=== PATIENT | female | born 1950 | race Caucasian/White ===

== ENCOUNTER → 2017-06-08 | Outpatient (CLI) | payer MEDICARE ==
[~2017-06-08] MED LIST: ALLERGY PILL; AMOXICILLIN500 MG; CEPHALEXIN500 M1 PO; COUGH SYRUP; FISH OIL1 IU; HYDROXYZINE HCL25 MG PO; MEDROL DOSEPAK4 MG PO; MOTRIN800 MG PO; MUCINEX D 600 M1 TER; PREDNICOT20 MG PO; SYNTHROID25 MCG PO; TOPROL XL25 MG PO; VICODIN 5/500 505 MG PO; VITAMINS; ZITHROMAX250 MG PO; [UNRECOGNIZED DRUG - OTHER]; [UNRECOGNIZED DRUG - REMARK]
== END | disposition home or self-care (01) ==
LOC: CT 10:50
DX: I67.82 Cerebral ischemia (principal); E03.9 Hypothyroidism, unspecified; E78.5 Hyperlipidemia, unspecified; I10 Essential (primary) hypertension

== ENCOUNTER → 2017-12-06 | Outpatient (CLI) | payer MEDICARE | END | disposition home or self-care (01) | LOC: MAMMO 09:35 | DX: Z12.31 Encounter for screening mammogram for malignant neoplasm of breast (principal) ==

== ENCOUNTER → 2018-12-12 | Outpatient (CLI) | payer MEDICARE | END | disposition home or self-care (01) | LOC: MAMMO 07:14 | DX: Z12.31 Encounter for screening mammogram for malignant neoplasm of breast (principal) ==

== ENCOUNTER → 2019-01-21 | Outpatient (CLI) | payer MEDICARE | END | disposition home or self-care (01) | LOC: RAD 11:54 | DX: M85.872 Other specified disorders of bone density and structure, left ankle and foot (principal) ==

== ENCOUNTER 2019-08-30 10:28 | Inpatient (IN) | payer MEDICARE ==
[~2019-08-30] VITALS: Ht 152.4 cm; Wt 78.9 kg
[2019-08-30 10:34] VITALS: BP 163/76
[2019-08-30 11:39] LABS: BASO # 0.1 10*3/uL (0.0-0.1); BASO % 0.5 % (0.0-1.0); EOS # 0.1 10*3/uL (0.0-0.4); EOS % 0.5 % (1.0-4.0); HEMATOCRIT 47.5 % (37.0-47.0); HEMOGLOBIN 15.6 g/dl (12.0-16.0); LYMPH # 1.7 10*3/uL (1.3-4.4); LYMPH % 15.6 % (27.0-41.0); MEAN CORPUSCULAR HGB 31.2 pg (27.0-31.0); MEAN CORPUSCULAR HGB CONC 32.8 g/dl (33.0-37.0); MEAN PLATELET VOLUME 9.7 fl (9.6-12.3); MONO # 1.5 10*3/uL (0.1-1.0); MONO % 13.3 % (3.0-9.0); NEUT # 7.7 10*3/uL (2.3-7.9); NEUT % 69.6 % (47.0-73.0); PLATELET COUNT AUTOMATED 292 10*3/uL (130-400); RED CELL DISTRI WIDTH 13.1 % (0-14.5)
[2019-08-30 11:53] LABS: ALBUMIN 3.9 gm/dl (3.1-4.5); ALKALINE PHOSPHATASE 68 U/L (45-117); BUN 11 mg/dl (7-24); CHLORIDE 106 mmol/L (98-107); CREATININE 0.66 mg/dL (0.55-1.02); POTASSIUM 4.3 mmol/L (3.5-5.1); SGOT/AST 15 IU/L (3-35); SGPT/ALT 34 U/L (12-78); SODIUM 138 mmol/L (136-145); TOTAL PROTEIN 7.3 gm/dL (6.4-8.2)
[2019-08-30 12:00] VITALS: BP 156/60
[2019-08-30 15:15] VITALS: BP 156/60
[2019-08-30] MEDS ORDERED: LEVOTHYROXINE100 MC1 PO (15:33)
[2019-08-30] MEDS ORDERED: AUGMENTIN 500500 MG PO (15:35)
[2019-08-30] MEDS ORDERED: METHYLPRED-DP4 MG PO (15:36)
[2019-08-30] MEDS ORDERED: LOVASTATIN40 MG PO (15:37)
[2019-08-30] MEDS ORDERED: SERTRALINE HYD100 MG PO (15:38)
[2019-08-30] MEDS ORDERED: MONTELUKAST SOD10 MG PO (15:38)
[2019-08-30] MEDS ORDERED: ASPIRIN ADULT L81 M1 PO (15:39)
[2019-08-30 16:00] VITALS: BP 156/66
--- NOTE | 2019-08-30 17:00 | NUR ---
PATIENT INSTRUCTED ON FLUTTER VALVE.
--- NOTE | 2019-08-30 19:45 | NUR ---
TOOK OVER CARE OF PT.PT SITTING UP IN BED, ALERT ORIENTED AND PLEASANT MOOD. ASSESSMENT COMPLETE. NO NEW ABNORMALITIES NOTED. NO S/S OF DISTRESS. PT DENIES NEEDING ANYTHING AT THIS TIME. CALL LIGHT IN REACH.
[2019-08-30 20:00] VITALS: BP 169/67
[2019-08-30 20:30] VITALS: BP 140/88
--- NOTE | 2019-08-30 21:58 | NUR ---
PT GIVEN HS MEDICATIONS. IV SITE TO RIGHT ANTECUBITAL IS PATENT, FLUSHING WITH EASE/GOOD BLOOD RETURN. PT PRODUCTIVE COUGH NOTED. PT ENCOURAGED TO PROVIDE SPUTUM SAMPLE. PT DENIES NEEDING ANYTHING ELSE. ALL SAFETY MEASURES ARE IN PLACE. CALL LIGHT IN REACH.
[2019-08-31] VITALS: BP 159/70
--- NOTE | 2019-08-31 01:55 | NUR ---
Shift chart check completed.
--- NOTE | 2019-08-31 06:44 | NUR ---
PT RESTING IN BED, NO S/S OF DISTRESS. AM MEDS TAKEN WITH EASE. PT DENIES NEEDING ANYTHING AT THIS TIME. CALL LIGHT IN REACH.
[2019-08-31 06:49] LABS: BASO % 0.1 % (0.0-1.0); HEMOGLOBIN 14.5 g/dl (12.0-16.0); LYMPH # 1.7 10*3/uL (1.3-4.4); LYMPH % 16.9 % (27.0-41.0); MEAN CORPUSCULAR HGB 31.3 pg (27.0-31.0); MEAN PLATELET VOLUME 9.9 fl (9.6-12.3); MONO % 9.6 % (3.0-9.0); NEUT # 7.2 10*3/uL (2.3-7.9); NEUT % 72.6 % (47.0-73.0); PLATELET COUNT AUTOMATED 279 10*3/uL (130-400); RED BLOOD COUNT 4.63 10*6/uL (4.10-5.10); RED CELL DISTRI WIDTH 13.1 % (0-14.5)
[2019-08-31 07:19] LABS: ALBUMIN 3.6 gm/dl (3.1-4.5); ALKALINE PHOSPHATASE 58 U/L (45-117); BUN 11 mg/dl (7-24); CHLORIDE 108 mmol/L (98-107); CREATININE 0.68 mg/dL (0.55-1.02); PHOSPHOROUS 3.1 mg/dL (2.5-4.9); POTASSIUM 4.1 mmol/L (3.5-5.1); SGOT/AST 14 IU/L (3-35); SGPT/ALT 29 U/L (12-78); SODIUM 139 mmol/L (136-145)
--- NOTE | 2019-08-31 07:25 | NUR ---
ARRIVED ON SHIFT, INTRODUCED TO PATIENT, BED IN LOW POSITION, WHEEL LOCKS IN ENGAGED, CALL LIGHT WITHIN REACH, NO NEEDS VOICED AT THIS TIME, WHITE BOARD UPDATED.
[2019-08-31 08:00] VITALS: BP 145/56
--- NOTE | 2019-08-31 10:48 | NUR ---
PATIENT C/O OF HEADACHE PAIN 8/10 MEDICATED WITH TYLENOL ORDERED.
--- NOTE | 2019-08-31 11:48 | NUR ---
PATIENT REPORTS NO RELIEF FROM TYLENOL GIVEN X 1 HOUR AGO, DR. GRIFFITHS.
[2019-08-31 12:00] VITALS: BP 149/60
[2019-08-31 16:00] VITALS: BP 152/75
[2019-08-31 20:00] VITALS: BP 121/48
[2019-09-01] VITALS: BP 137/51
--- NOTE | 2019-09-01 07:00 | NUR ---
ARRIVED ON SHIFT, INTRODUCED TO PATIENT, BED IN LOW POSITION, WHEEL LOCKS ENGAGED, CALL LIGHT WITHIN REACH, NO NEEDS VOICED AT THIS TIME . WHITEBOARD UPDATED.
[2019-09-01 08:00] VITALS: BP 158/71
--- NOTE | 2019-09-01 08:08 | NUR ---
Shift chart check completed.
--- NOTE | 2019-09-01 09:00 | NUR ---
Employee Relations Assistant in to talk to patient. Patient states lives at home with . There are no steps in the home. Physician: everett griffith Pharmacy: [facility] health services: none Patient's level of ADLs: INDEPENDENT Patient has working utilities: all working DME: none Follow-up physician's appointment after d/c: will be made by hospitalist nurse director upon discharge Does patient want to access PORTAL?: no Discharge plan discussed with patient, she states she lives ta home with carissa, she stated she is independent in adls and ambulation, she has a nebulizer, she states she will return home when medically stable and denies any home needs. DARIO LEA
--- NOTE | 2019-09-01 10:12 | NUR ---
CALLED DR. GREEN, ADVISED OF CONSULT, HE VERSED HE WILL SEE HER TOMORROW.
[2019-09-01 12:00] VITALS: BP 147/73
[2019-09-01 16:00] VITALS: BP 156/75
[2019-09-01 20:00] VITALS: BP 131/54
[2019-09-02] VITALS: BP 130/60
--- NOTE | 2019-09-02 07:20 | NUR ---
ARRIVED ON SHIFT, INTRODUCED TO PATIENT, BED IN LOW POSITION, WHEEL LOCKS ENGAGED, CALL LIGHT WITHIN REACH, NO NEEDS VOICED AT THIS TIME.
[2019-09-02 08:00] VITALS: BP 117/81
--- NOTE | 2019-09-02 09:00 | NUR ---
case management visits with patient, she states she will return home when medically stable and denies any home needs
[2019-09-02 12:00] VITALS: BP 153/74
--- NOTE | 2019-09-02 15:47 | NUR ---
Shift chart check completed.
[2019-09-02 16:00] VITALS: BP 123/67
[2019-09-02 20:00] VITALS: BP 130/51
--- NOTE | 2019-09-02 20:00 | NUR ---
[id number] SITTING UP IN BED WITH HOB ELEVATED. 02 INTACT AT 1 LITER VIA NASAL CANNULA. PULSE OX 94%. PT. VOICES NO C/O AT THIS TIME. VISITING. CALL LIGHT WITHIN REACH.
--- NOTE | 2019-09-02 22:00 | NUR ---
TOOK PO MEDICATION WITHOUT DIFFICULTY. VOICES NO C/O AT THIS TIME. PT. INFORMED OF NPO STATUS AFTER MIDNIGHT FOR BRONCHOSCOPY TOMORROW MORNING. PT. VERBALIZED UNDERSTANDING. CALL LIGHT WITHIN REACH.
[2019-09-03] VITALS (8 sets, daily range): BP systolic 119–146; BP diastolic 52–86
[2019-09-03 06:10] LABS: HEMATOCRIT 42.6 % (37.0-47.0); HEMOGLOBIN 13.8 g/dl (12.0-16.0); MEAN CELL VOLUME 94.9 fl (81.0-99.0); MEAN CORPUSCULAR HGB 30.7 pg (27.0-31.0); MEAN CORPUSCULAR HGB CONC 32.4 g/dl (33.0-37.0); MEAN PLATELET VOLUME 9.7 fl (9.6-12.3); PLATELET COUNT AUTOMATED 323 10*3/uL (130-400); RED BLOOD COUNT 4.49 10*6/uL (4.10-5.10); RED CELL DISTRI WIDTH 13.2 % (0-14.5); WHITE BLOOD COUNT 15.3 10*3/uL (4.8-10.8)
--- NOTE | 2019-09-03 06:30 | NUR ---
RESTING IN BED WITH EYES CLOSED. 02 INTACT. RESPIRATIONS EASY & UNLABORED. CALL LIGHT WITHIN REACH.
[2019-09-03 06:39] LABS: OVALOCYTES FEW; PLATELET SUFFICIENCY NORMAL (NORMAL); TOTAL CELLS COUNTED 100 #CELLS
[2019-09-03 06:40] LABS: VACUOLATION OF NEUTROPHILS SLIGHT
[2019-09-03 06:45] LABS: ALBUMIN 3.4 gm/dl (3.1-4.5); ALKALINE PHOSPHATASE 48 U/L (45-117); BUN 18 mg/dl (7-24); CHLORIDE 108 mmol/L (98-107); CREATININE 0.71 mg/dL (0.55-1.02); POTASSIUM 4.4 mmol/L (3.5-5.1); SGOT/AST 10 IU/L (3-35); SGPT/ALT 30 U/L (12-78); SODIUM 141 mmol/L (136-145); TOTAL PROTEIN 6.3 gm/dL (6.4-8.2)
--- NOTE | 2019-09-03 09:00 | NUR ---
case management visits with patient, she states she will return home when medically stable and denies any home needs, case management will follow
--- NOTE | 2019-09-03 21:14 | NUR ---
PATIENT MEDICATED WITH TYLENOL PER REQUEST FOR COMPLAINTS OF A HEADACHE. WILL CONTINUE TO MONITOR.
--- NOTE | 2019-09-03 21:29 | NUR ---
PATIENTS IV LEAKING. IV REMOVED. NEW IV 22G IV STARTED IN LEFT HAND ON FIRST ATTEMPT. WILL CONTINUE TO MONITOR.
[2019-09-04] VITALS: BP 119/53
--- NOTE | 2019-09-04 01:45 | NUR ---
PATIENT SLEEPING, NO SIGNS OF DISTRESS. RESPIRATIONS EASY,NON LABORED. NO SIGNS OF DISTRESS. BED IN LOWEST POSITION,CALL LIGHT WITHIN REACH. WILL CONTINUE TO MONITOR.
--- NOTE | 2019-09-04 05:00 | NUR ---
PATIENT ACCIDENTLY RIPPED IV OUT. NEW IV 20G IV STARTED IN LAC.
[2019-09-04 06:17] LABS: HEMATOCRIT 41.9 % (37.0-47.0); HEMOGLOBIN 13.6 g/dl (12.0-16.0); MEAN CELL VOLUME 94.8 fl (81.0-99.0); MEAN CORPUSCULAR HGB 30.8 pg (27.0-31.0); MEAN CORPUSCULAR HGB CONC 32.5 g/dl (33.0-37.0); MEAN PLATELET VOLUME 9.7 fl (9.6-12.3); PLATELET COUNT AUTOMATED 327 10*3/uL (130-400); RED BLOOD COUNT 4.42 10*6/uL (4.10-5.10); RED CELL DISTRI WIDTH 13.2 % (0-14.5); WHITE BLOOD COUNT 18.4 10*3/uL (4.8-10.8)
[2019-09-04 06:27] LABS: BUN 16 mg/dl (7-24); CHLORIDE 107 mmol/L (98-107); CREATININE 0.67 mg/dL (0.55-1.02); POTASSIUM 4.3 mmol/L (3.5-5.1); SODIUM 139 mmol/L (136-145)
[2019-09-04 07:15] LABS: PLATELET SUFFICIENCY NORMAL (NORMAL); TOTAL CELLS COUNTED 100 #CELLS
[2019-09-04 08:00] VITALS: BP 134/44
--- NOTE | 2019-09-04 09:00 | NUR ---
case management visits with patient,she states she will return home when medically stable and denies any home needs
--- NOTE | 2019-09-04 09:07 | NUR ---
PT MEDICATED WITH PRN TYLENOL FOR C/O A HEADACHE.
[2019-09-04 12:00] VITALS: BP 130/48
[2019-09-04 16:00] VITALS: BP 136/52
[2019-09-04 16:08] LABS: ACID FAST SPEC PROCESSING Concentration (.)
--- NOTE | 2019-09-04 17:38 | NUR ---
12:00 O2 DECREASED TO 1 L NC SPO2 94% ON 2 L NC
[2019-09-04 20:00] VITALS: BP 135/75
[2019-09-05] VITALS: BP 135/59
--- NOTE | 2019-09-05 04:00 | NUR ---
PATIENT SLEEPING, RESPIRATIONS EASY, NON LABORED. NO SIGNS OF DISTRESS. BED IN LOWEST POSITION,CALL LIGHT WITHIN REACH. WILL CONTINUE TO MONITOR.
[2019-09-05 08:00] VITALS: BP 154/60
--- NOTE | 2019-09-05 12:44 | NUR ---
12:30 PT ASSESSED FOR HOME O2. SPO2 RA REST: 90-91% SPO2 RA AMBULATIN-92% PT DOSE NOT QUALIFY FOR HOME O2. RN AND AWARE.
[2019-09-05] MEDS ORDERED: LISINOPRIL10 M1 PO (12:50)
[2019-09-05] MEDS ORDERED: AVPAK AZITHROM250 MG PO (12:50)
[2019-09-05] MEDS ORDERED: PREDNISONE10 MG PO (12:50)
--- NOTE | 2019-09-05 13:11 | NUR ---
Discharge instructions reviewed with patient. Patient receptive and verbalizes understanding. Follow-up care arranged. Written instructions given to patient. 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 TAYLOR GARRISON
--- NOTE | 2019-09-05 13:35 | NUR ---
Pt out via wheelchair to first floor lobby by Felicity Agrawal for dc.
--- NOTE | 2019-09-05 16:04 | NUR ---
Spoke with Vera from [facility]. She was asking about order for zithromycin for pt. Notified that pt had 2 iv doses here at the hospital.
== END 2019-09-05 13:35 | disposition home or self-care (01) | DRG 190 ==
LOC: ED 10:28 → EDHOLD 13:54 → 5E 13:54
PROVIDERS: Family Medicine; Internal Medicine; Internal Medicine Critical Care Medicine; Physician Assistant; ADMIT Internal Medicine
PROC: 0BC48ZZ Extirpation of Matter from Right Upper Lobe Bronchus, Via Natural or Artificial Opening Endoscopic (ICD-10-PCS; principal; 2019-09-03)
PROC: 0BC98ZZ Extirpation of Matter from Lingula Bronchus, Via Natural or Artificial Opening Endoscopic (ICD-10-PCS; principal; 2019-09-03)
PROC: 0BC58ZZ Extirpation of Matter from Right Middle Lobe Bronchus, Via Natural or Artificial Opening Endoscopic (ICD-10-PCS; principal; 2019-09-03)
PROC: 0BC18ZZ Extirpation of Matter from Trachea, Via Natural or Artificial Opening Endoscopic (ICD-10-PCS; principal; 2019-09-03)
PROC: 0BC28ZZ Extirpation of Matter from Carina, Via Natural or Artificial Opening Endoscopic (ICD-10-PCS; principal; 2019-09-03)
PROC: 0BCB8ZZ Extirpation of Matter from Left Lower Lobe Bronchus, Via Natural or Artificial Opening Endoscopic (ICD-10-PCS; principal; 2019-09-03)
PROC: 0BC88ZZ Extirpation of Matter from Left Upper Lobe Bronchus, Via Natural or Artificial Opening Endoscopic (ICD-10-PCS; principal; 2019-09-03)
PROC: 0BC78ZZ Extirpation of Matter from Left Main Bronchus, Via Natural or Artificial Opening Endoscopic (ICD-10-PCS; principal; 2019-09-03)
PROC: 0BC38ZZ Extirpation of Matter from Right Main Bronchus, Via Natural or Artificial Opening Endoscopic (ICD-10-PCS; principal; 2019-09-03)
PROC: 0BC68ZZ Extirpation of Matter from Right Lower Lobe Bronchus, Via Natural or Artificial Opening Endoscopic (ICD-10-PCS; principal; 2019-09-03)
DX: J44.0 Chronic obstructive pulmonary disease with (acute) lower respiratory infection (principal); J18.9 Pneumonia, unspecified organism; E44.1 Mild protein-calorie malnutrition; J44.1 Chronic obstructive pulmonary disease with (acute) exacerbation; J20.9 Acute bronchitis, unspecified; H66.92 Otitis media, unspecified, left ear; I10 Essential (primary) hypertension; J98.09 Other diseases of bronchus, not elsewhere classified; E03.9 Hypothyroidism, unspecified; E78.5 Hyperlipidemia, unspecified; F17.219 Nicotine dependence, cigarettes, with unspecified nicotine-induced disorders; E87.8 Other disorders of electrolyte and fluid balance, not elsewhere classified; E83.41 Hypermagnesemia; E66.9 Obesity, unspecified; F41.1 Generalized anxiety disorder; E11.65 Type 2 diabetes mellitus with hyperglycemia; Z71.6 Tobacco abuse counseling; Z68.34 Body mass index [BMI] 34.0-34.9, adult; Z91.048 Other nonmedicinal substance allergy status; Z79.899 Other long term (current) drug therapy; Z90.710 Acquired absence of both cervix and uterus; Z82.49 Family history of ischemic heart disease and other diseases of the circulatory system; Z79.82 Long term (current) use of aspirin

== ENCOUNTER 2020-02-11 09:04 | Inpatient (IN) | payer MEDICARE ==
[2020-02-11] VITALS (11 sets, daily range): BP systolic 118–159; BP diastolic 58–84
[~2020-02-11] VITALS: Ht 152.4 cm; Wt 86.6 kg
[~2020-02-11 09:04] MED LIST changes: +ASPIRIN ADULT L81 M1 PO; +AUGMENTIN 500500 MG PO; +AVPAK AZITHROM250 MG PO; +LEVOTHYROXINE100 MC1 PO; +LISINOPRIL10 M1 PO; +LOVASTATIN40 MG PO; +METHYLPRED-DP4 MG PO; +MONTELUKAST SOD10 MG PO; +PREDNISONE10 MG PO; +SERTRALINE HYD100 MG PO
[2020-02-11] MEDS ORDERED: Rimactane,Rifa300 MG PO (09:32)
[2020-02-11] MEDS ORDERED: AZITHROMYCIN500 M2 PO (09:33)
[2020-02-11 09:35] LABS: HEMATOCRIT 44.6 % (37.0-47.0); MEAN CELL VOLUME 92.9 fl (81.0-99.0); MEAN CORPUSCULAR HGB 30.6 pg (27.0-31.0); MEAN PLATELET VOLUME 9.5 fl (9.6-12.3); PLATELET COUNT AUTOMATED 271 10*3/uL (130-400); RED CELL DISTRI WIDTH 13.2 % (0-14.5); WHITE BLOOD COUNT 5.5 10*3/uL (4.8-10.8)
[2020-02-11 09:46] LABS: ACT PARTIAL THROMBO TIME 32.9 SECONDS (20.0-32.1)
[2020-02-11 09:53] LABS: ALBUMIN 3.9 gm/dl (3.1-4.5); ALKALINE PHOSPHATASE 54 U/L (45-117); BUN 10 mg/dl (7-24); CHLORIDE 108 mmol/L (98-107); CREATININE 0.66 mg/dL (0.55-1.02); SGOT/AST 22 IU/L (3-35); SGPT/ALT 36 U/L (12-78); SODIUM 139 mmol/L (136-145); TOTAL PROTEIN 7.4 gm/dL (6.4-8.2)
[2020-02-11 09:54] LABS: TROPONIN I < 0.015 ng/ml (<0.045)
[2020-02-11 09:56] LABS: OVALOCYTES FEW; PLATELET SUFFICIENCY NORMAL (NORMAL); TOTAL CELLS COUNTED 100 #CELLS
--- NOTE | 2020-02-11 11:29 | NUR ---
PATIENT FELL ASLEEP PULSE OX DROPPED TO 90% ON ROOM AIR. PATIENT STARTED ON 2L VIA NASAL CANNULA
--- NOTE | 2020-02-11 12:11 | NUR ---
2ND EKG COMPLETED
--- NOTE | 2020-02-11 13:00 | NUR ---
CALLED RECEIVING NURSE, SHE IS AT [place] SHE IS CALLING THE FLOOR TO SEE IF SOMEONE WILL TAKE PATIENT
--- NOTE | 2020-02-11 13:42 | NUR ---
MSTime: 1330 A 69 year old FEMALE admitted to 5E under services of YAO DOMINGUEZ DO. Pt. arrived via ambulatory from ER. Chief complaint: INCREASED SHORTNESS OF BREATH RONALDO VAZQUEZ.
--- NOTE | 2020-02-11 13:56 | NUR ---
PT MEDICATED WITH PO TYLENOL PER PRN ORDER FOR C/O HEADACHE. WILL MONITOR EFFECTIVENESS.
[2020-02-11] MEDS ORDERED: PROAIR HFA8.5 GM INH (14:11)
[2020-02-11] MEDS ORDERED: LISINOPRIL40 MG PO (14:11)
--- NOTE | 2020-02-11 14:14 | NUR ---
'S OFFICE CALLED REGARDING HOME MEDS. MED REC UPDATED PER POLICY.
--- NOTE | 2020-02-11 14:28 | NUR ---
NOTIFIED OF CONSULT.
--- NOTE | 2020-02-11 14:56 | NUR ---
TYLENOL RELIEVING HEADACHE PER PT. WILL CONTINUE TO MONITOR.
--- NOTE | 2020-02-11 18:41 | NUR ---
PT MEDICATED WITH PO TYLENOL PER PRN ORDER FOR C/O HEADACHE. WILL MONITOR EFFECTIVENESS.
--- NOTE | 2020-02-11 19:30 | NUR ---
PATIENT AT THIS TIME ACCIDENTALLY PULLED IV OUT. NEW IV STARTED IN THE RIGHT AC AFTER ONE ATTEMPT. PATIENTS BREATHING IS EASY AND REGULAR AND STATES ONLY SHORTNESS OF BREATH WITH EXERTION. 2L AT BEDSIDE FOR COMFORT. PATIENT STATES THAT SHE IS GETTING ON AND OFF HEADACHES. NO EDEMA NOTED. DENIES CHEST PAIN. DENIES N/V/D/C. CALL LIGHT WITHIN REACH, WILL MONITOR
--- NOTE | 2020-02-11 22:58 | NUR ---
PATIENT SITTING IN BED ON PHONE. NO COMPLAINTS AT THIS TIME BEDSIDES FEELING STUFFY. HUMIDIFIED OXYGEN ADDED. CALL LIGHT WITHIN REACH, WILL MONITOR
[2020-02-12] VITALS: BP 107/61
--- NOTE | 2020-02-12 01:00 | NUR ---
PATIENT SLEEPING, NO DISTRESS NOTED. BREATHING IS EASY AND REGULAR ON 2L NC. CALL LIGHT WITHIN REACH, WILL MONITOR
[2020-02-12 06:23] LABS: BASO % 0.2 % (0.0-1.0); HEMATOCRIT 42.4 % (37.0-47.0); LYMPH # 1.5 10*3/uL (1.3-4.4); LYMPH % 30.3 % (27.0-41.0); MEAN CELL VOLUME 93.6 fl (81.0-99.0); MEAN CORPUSCULAR HGB 30.7 pg (27.0-31.0); MEAN CORPUSCULAR HGB CONC 32.8 g/dl (33.0-37.0); MEAN PLATELET VOLUME 9.9 fl (9.6-12.3); MONO # 0.9 10*3/uL (0.1-1.0); MONO % 18.5 % (3.0-9.0); NEUT # 2.4 10*3/uL (2.3-7.9); NEUT % 50.4 % (47.0-73.0); PLATELET COUNT AUTOMATED 272 10*3/uL (130-400); RED BLOOD COUNT 4.53 10*6/uL (4.10-5.10); RED CELL DISTRI WIDTH 13.1 % (0-14.5); WHITE BLOOD COUNT 4.8 10*3/uL (4.8-10.8)
[2020-02-12 06:41] LABS: BUN 12 mg/dl (7-24); CHLORIDE 107 mmol/L (98-107); CHOLESTEROL 175 mg/dL (<200); CREATININE 0.65 mg/dL (0.55-1.02); HDL CHOLESTEROL 37 mg/dl (40-60); LDL CHOLESTEROL 125 mg/dL (9-159); POTASSIUM 3.9 mmol/L (3.5-5.1); SODIUM 137 mmol/L (136-145); TRIGLYCERIDES 65 mg/dl (<150); VLDL CHOLESTEROL 13 mg/dL (6-40)
[2020-02-12 08:00] VITALS: BP 152/91
--- NOTE | 2020-02-12 08:00 | NUR ---
IN TO SEE PATIENT.
[2020-02-12] MEDS ORDERED: ZYRTEC10 M2 PO (08:15)
--- NOTE | 2020-02-12 09:00 | NUR ---
Pathology Manager in to talk to patient. Patient states lives at home with . There are no steps in the home. Physician: everett griffith Pharmacy: [facility] health services: none Patient's level of ADLs: INDEPENDENT Patient has working utilities: all working DME: none Follow-up physician's appointment after d/c: will be made by hospitalist nurse director upon discharge Does patient want to access PORTAL?: no Discharge plan discussed with patient, she states she lives at home with her , she is independent in adls and ambulation, drives, she states she will return home when discharged and denies any home needs, case management will follow. DARIO LEA
--- NOTE | 2020-02-12 09:30 | NUR ---
IN TO SEE PATIENT.
[2020-02-12 12:00] VITALS: BP 130/48
--- NOTE | 2020-02-12 13:19 | NUR ---
PATIENT SITTING UP IN BED. SPUTUM CONTAINER AT BEDSIDE. PT DENIES ANY HEADACHE AT THIS TIME. WILL CONTINUE TO MONITOR. NO VOICED COMPLAINTS. CALL LIGHT WITHIN REACH. VSS.
[2020-02-12 16:00] VITALS: BP 133/47
[2020-02-12 20:00] VITALS: BP 117/58
--- NOTE | 2020-02-12 21:19 | NUR ---
NOTIFIED DR. JENSEN AT THIS TIME OF PATIENT COMPLAINING OF A RECURRENT HEADACHE. PATIENT STATED THAT TYLENOL IS INEFFECTIVE AND THAT SHE WANTS TO THE HEADACHE TO GO AWAY AND TO JUST GO TO SLEEP. DR. JENSEN STATED IT WAS OK FOR THE PATIENT TO HAVE IBUPROFEN AND A RESTORIL
--- NOTE | 2020-02-12 22:04 | NUR ---
PRN DULCOLAX GIVEN FOR PT COMPLAINTS OF ABDOMINAL DISCOMFORT SHE SAYS SHE HAS NOT MOVED HER BOWELS SINCE SUNDAY. CALL LIGHT WITHIN REACH, WILL MONITOR
--- NOTE | 2020-02-12 22:04 | NUR ---
ADMINISTERED PATIENTS MEDICATION AT THIS TIME. PATIENT DENIES ANY OTHER NEEDS AND STATED THAT AFTER HER BREATHING TREATMENT SHE WILL LET THIS NURSE KNOW IF SHE NEEDS THE SLEEPING PILL. CALL LIGHT WITHIN REACH, WILL MONITOR
[2020-02-13] VITALS: BP 136/57
--- NOTE | 2020-02-13 00:37 | NUR ---
PATIENT SLEEPING, NO DISTRESS NOTED. BREATHING IS EASY AND REGULAR CALL LIGHT WITHIN REACH, WILL MONITOR
--- NOTE | 2020-02-13 02:48 | NUR ---
PATIENT SLEEPING, NO DISTRESS NOTED. WILL MONITOR
--- NOTE | 2020-02-13 03:39 | NUR ---
24 HR chart check completed.
[2020-02-13 08:00] VITALS: BP 132/57
--- NOTE | 2020-02-13 08:34 | NUR ---
PT MEDICATED WITH PRN TYLENOL FOR C/O A HEADACHE.
--- NOTE | 2020-02-13 09:00 | NUR ---
case management visits with patient, she states she will return home when discharged, denies any home needs, case management will follow
[2020-02-13 12:00] VITALS: BP 116/60
--- NOTE | 2020-02-13 12:44 | NUR ---
PT TESTED FOR HOME OXYGEN USE. AT REST HEART RATE WAS 85 BEATS PER MIN, SPO2 WAS 94% AND BLOOD PRESSURE WAS 116/60. DURING AMBULATION ON ROOM AIR HEART RATE WAS 92 BEATS PER MINUTE AND SPO2 WAS 90%. PT DOES NOT QUALIFY FOR HOME OXYGEN.
[2020-02-13] MEDS ORDERED: DOXYCYCLINE100 M3 PO (13:37)
[2020-02-13] MEDS ORDERED: PREDNISONE10 MG PO (13:37)
--- NOTE | 2020-02-13 13:58 | NUR ---
DISCHARGE INSTRUCTIONS REVIEWED. HEPLOCK REMOVED. PRESCRIPTIONS AND FOLLOW UP CARE DISCUSSED. PTS DAUGHTER TO CONSUMER SERVICES CONSULTANT AROUND 3 PM.
--- NOTE | 2020-02-13 15:03 | NUR ---
PT DISCHARGED HOME AT THIS TIME. DAUGHTER TO TRANSPORT.
== END 2020-02-13 15:03 | disposition home or self-care (01) | DRG 193 ==
LOC: ED 09:04 → 5E 12:33 → EDHOLD 12:33 → 5E 12:39
PROVIDERS: Emergency Medicine; Internal Medicine; ADMIT Internal Medicine
DX: J18.9 Pneumonia, unspecified organism (principal); J96.00 Acute respiratory failure, unspecified whether with hypoxia or hypercapnia; J44.1 Chronic obstructive pulmonary disease with (acute) exacerbation; J44.0 Chronic obstructive pulmonary disease with (acute) lower respiratory infection; J45.901 Unspecified asthma with (acute) exacerbation; E87.8 Other disorders of electrolyte and fluid balance, not elsewhere classified; R73.9 Hyperglycemia, unspecified; E83.41 Hypermagnesemia; I10 Essential (primary) hypertension; F17.210 Nicotine dependence, cigarettes, uncomplicated; E03.9 Hypothyroidism, unspecified; E78.5 Hyperlipidemia, unspecified; E66.9 Obesity, unspecified; F41.1 Generalized anxiety disorder; Z71.6 Tobacco abuse counseling; Z90.710 Acquired absence of both cervix and uterus; Z82.49 Family history of ischemic heart disease and other diseases of the circulatory system; Z79.82 Long term (current) use of aspirin; Z79.899 Other long term (current) drug therapy; Z79.890 Hormone replacement therapy; Z88.8 Allergy status to other drugs, medicaments and biological substances; Z68.34 Body mass index [BMI] 34.0-34.9, adult

== ENCOUNTER 2020-05-02 11:53 | Emergency (ER) | payer MEDICARE ==
[~2020-05-02] VITALS: Ht 152.4 cm; Wt 84.4 kg
[~2020-05-02 11:53] MED LIST changes: +AZITHROMYCIN500 M2 PO; +DOXYCYCLINE100 M3 PO; +LISINOPRIL40 MG PO; +PROAIR HFA8.5 GM INH; +Rimactane,Rifa300 MG PO; +ZYRTEC10 M2 PO
[2020-05-02 12:00] VITALS: BP 148/60
[2020-05-02 12:51] LABS: BASO # 0.1 10*3/uL (0.0-0.1); BASO % 0.8 % (0.0-1.0); EOS # 0.3 10*3/uL (0.0-0.4); EOS % 3.2 % (1.0-4.0); HEMATOCRIT 47.6 % (37.0-47.0); LYMPH # 2.6 10*3/uL (1.3-4.4); LYMPH % 31.3 % (27.0-41.0); MEAN CELL VOLUME 97.5 fl (81.0-99.0); MEAN CORPUSCULAR HGB 30.5 pg (27.0-31.0); MEAN CORPUSCULAR HGB CONC 31.3 g/dl (33.0-37.0); MEAN PLATELET VOLUME 9.9 fl (9.6-12.3); MONO # 1.3 10*3/uL (0.1-1.0); NEUT % 48.5 % (47.0-73.0); PLATELET COUNT AUTOMATED 310 10*3/uL (130-400); RED BLOOD COUNT 4.88 10*6/uL (4.10-5.10); RED CELL DISTRI WIDTH 13.5 % (0-14.5); WHITE BLOOD COUNT 8.4 10*3/uL (4.8-10.8)
[2020-05-02 13:05] LABS: ACT PARTIAL THROMBO TIME 31.3 SECONDS (20.0-32.1)
[2020-05-02 13:13] LABS: ALBUMIN 3.8 gm/dl (3.1-4.5); ALKALINE PHOSPHATASE 62 U/L (45-117); BUN 6 mg/dl (7-24); CHLORIDE 109 mmol/L (98-107); CREATININE 0.76 mg/dL (0.55-1.02); LIPASE 129 U/L (73-393); POTASSIUM 4.2 mmol/L (3.5-5.1); SGOT/AST 16 IU/L (3-35); SGPT/ALT 21 U/L (12-78); SODIUM 140 mmol/L (136-145); TOTAL PROTEIN 7.5 gm/dL (6.4-8.2)
[2020-05-02 13:17] LABS: TROPONIN I < 0.015 ng/ml (<0.045)
[2020-05-02] MEDS ORDERED: MUCINEX1200 M1 PO (16:15)
[2020-05-02] MEDS ORDERED: PROVENTIL HFA6.7 GM INH (16:15)
[2020-05-02] MEDS ORDERED: PREDNISONE50 MG PO (16:15)
== END 2020-05-02 16:23 | disposition home or self-care (01) ==
LOC: ED 11:53
PROVIDERS: Nurse Practitioner Family
DX: J44.1 Chronic obstructive pulmonary disease with (acute) exacerbation (principal); Z20.828 Contact with and (suspected) exposure to other viral communicable diseases; F17.210 Nicotine dependence, cigarettes, uncomplicated; Z79.899 Other long term (current) drug therapy; Z79.82 Long term (current) use of aspirin

== ENCOUNTER → 2020-09-09 | Outpatient (CLI) | payer MEDICARE ==
[~2020-09-09] MED LIST changes: +MUCINEX1200 M1 PO; +PREDNISONE50 MG PO; +PROVENTIL HFA6.7 GM INH
== END | disposition home or self-care (01) ==
LOC: MAMMO 09:09
PROVIDERS: ATTEND Internal Medicine
DX: Z12.31 Encounter for screening mammogram for malignant neoplasm of breast (principal); N64.89 Other specified disorders of breast

== ENCOUNTER → 2020-09-30 | Outpatient (CLI) | payer MEDICARE | END | disposition home or self-care (01) | LOC: RAD 13:02 | PROVIDERS: ATTEND Internal Medicine Pulmonary Disease | DX: A31.9 Mycobacterial infection, unspecified (principal) ==

== ENCOUNTER 2021-03-21 18:30 | Inpatient (IN) | payer MEDICARE ==
[~2021-03-21] VITALS: Ht 149.8 cm; Wt 74.4 kg
[2021-03-21 19:24] VITALS: BP 111/64
[2021-03-22 05:49] LABS: HEMATOCRIT 37.4 % (37.0-47.0); MEAN CELL VOLUME 92.3 fl (81.0-99.0); MEAN CORPUSCULAR HGB 31.6 pg (27.0-31.0); MEAN CORPUSCULAR HGB CONC 34.2 g/dl (33.0-37.0); MEAN PLATELET VOLUME 9.4 fl (9.6-12.3); PLATELET COUNT AUTOMATED 440 10*3/uL (130-400); RED BLOOD COUNT 4.05 10*6/uL (4.10-5.10); RED CELL DISTRI WIDTH 14.2 % (0-14.5); WHITE BLOOD COUNT 16.4 10*3/uL (4.8-10.8)
[2021-03-22 05:58] LABS: ALBUMIN 3.6 gm/dl (3.1-4.5); ALKALINE PHOSPHATASE 60 U/L (45-117); BUN 20 mg/dl (7-24); CHLORIDE 97 mmol/L (98-107); CREATININE 0.77 mg/dL (0.55-1.02); SGOT/AST 35 IU/L (3-35); SGPT/ALT 30 U/L (12-78); SODIUM 131 mmol/L (136-145); TOTAL PROTEIN 7.2 gm/dL (6.4-8.2)
[2021-03-22 06:21] LABS: PLATELET SUFFICIENCY HIGH (NORMAL); TOTAL CELLS COUNTED 100 #CELLS
[2021-03-22 07:56] VITALS: BP 111/69
== END 2021-03-22 21:10 | disposition left against medical advice (07) | DRG 556 ==
LOC: ED 18:30 → EDHOLD 03-22 05:44
PROVIDERS: Emergency Medicine; ADMIT Internal Medicine; ATTEND Internal Medicine
DX: M25.562 Pain in left knee (principal); E87.1 Hypo-osmolality and hyponatremia; R26.89 Other abnormalities of gait and mobility; R26.2 Difficulty in walking, not elsewhere classified; F41.9 Anxiety disorder, unspecified; I10 Essential (primary) hypertension; E03.9 Hypothyroidism, unspecified; E78.5 Hyperlipidemia, unspecified; Z53.29 Procedure and treatment not carried out because of patient's decision for other reasons; J44.9 Chronic obstructive pulmonary disease, unspecified; D47.3 Essential (hemorrhagic) thrombocythemia; R73.9 Hyperglycemia, unspecified; Z88.8 Allergy status to other drugs, medicaments and biological substances; Z90.710 Acquired absence of both cervix and uterus; Z98.891 History of uterine scar from previous surgery; Z82.49 Family history of ischemic heart disease and other diseases of the circulatory system; Z79.51 Long term (current) use of inhaled steroids; Z79.82 Long term (current) use of aspirin; Z79.899 Other long term (current) drug therapy

== ENCOUNTER → 2021-07-26 | Outpatient (CLI) | payer MEDICARE | END | disposition home or self-care (01) | LOC: US 13:00 | PROVIDERS: ATTEND Internal Medicine | DX: E07.89 Other specified disorders of thyroid (principal); E03.9 Hypothyroidism, unspecified ==

== ENCOUNTER → 2021-11-16 | Outpatient (CLI) | payer MEDICARE | END | disposition home or self-care (01) | LOC: MAMMO 11-09 14:00 | PROVIDERS: ATTEND Internal Medicine | DX: Z12.31 Encounter for screening mammogram for malignant neoplasm of breast (principal) ==

== ENCOUNTER → 2022-02-22 | Outpatient (CLI) | payer MEDICARE | END | disposition home or self-care (01) | LOC: RAD 02-17 13:30 | PROVIDERS: ATTEND Internal Medicine | DX: M85.851 Other specified disorders of bone density and structure, right thigh (principal) ==

== ENCOUNTER → 2022-03-23 | Outpatient (CLI) | payer MEDICARE | END | disposition home or self-care (01) | LOC: RAD 12:50 | PROVIDERS: ATTEND Internal Medicine | DX: M47.817 Spondylosis without myelopathy or radiculopathy, lumbosacral region (principal); M85.88 Other specified disorders of bone density and structure, other site; M25.551 Pain in right hip; M25.552 Pain in left hip ==

== ENCOUNTER → 2022-06-06 | Outpatient (CLI) | payer MEDICARE | END | disposition home or self-care (01) | LOC: US 12:12 | PROVIDERS: ATTEND Nurse Practitioner Family | DX: M79.662 Pain in left lower leg (principal) ==

== ENCOUNTER → 2022-08-31 | Outpatient (CLI) | payer MEDICARE | END | disposition home or self-care (01) | LOC: CT 00:36 | PROVIDERS: ATTEND Specialist | DX: J34.1 Cyst and mucocele of nose and nasal sinus (principal); J32.9 Chronic sinusitis, unspecified ==

== ENCOUNTER → 2022-09-19 | Outpatient (CLI) | payer MEDICARE | END | disposition home or self-care (01) | LOC: RAD 15:30 | PROVIDERS: ATTEND Nurse Practitioner Family | DX: R10.30 Lower abdominal pain, unspecified (principal) ==

== ENCOUNTER → 2022-12-07 | Day surgery (SDC) | payer MEDICARE ==
[~2022-12-07] VITALS: Ht 151.7 cm; Wt 65.8 kg
[~2022-12-07] MED LIST changes: +CARAFATE1 G1 PO; +METAMUCIL PACK3.4 GM PO
[2022-12-07 06:30] VITALS: BP 158/62
[2022-12-07 08:02] VITALS: BP 112/56
[2022-12-07 08:17] VITALS: BP 119/55
[2022-12-07 08:22] VITALS: BP 124/60
== END | disposition home or self-care (01) ==
LOC: SDC 12-04 11:00
PROVIDERS: ATTEND Surgery
DX: D62 Acute posthemorrhagic anemia (principal); K57.30 Diverticulosis of large intestine without perforation or abscess without bleeding; K29.50 Unspecified chronic gastritis without bleeding; K25.3 Acute gastric ulcer without hemorrhage or perforation; J44.9 Chronic obstructive pulmonary disease, unspecified; E03.9 Hypothyroidism, unspecified; I10 Essential (primary) hypertension; E78.00 Pure hypercholesterolemia, unspecified; Z79.899 Other long term (current) drug therapy

== ENCOUNTER → 2023-02-07 | Outpatient (CLI) | payer MEDICARE | END | disposition home or self-care (01) | LOC: LAB 12:47 | PROVIDERS: ATTEND Internal Medicine Critical Care Medicine | DX: R53.83 Other fatigue (principal); J45.40 Moderate persistent asthma, uncomplicated; E11.9 Type 2 diabetes mellitus without complications; A31.0 Pulmonary mycobacterial infection; Z68.36 Body mass index [BMI] 36.0-36.9, adult; Z87.891 Personal history of nicotine dependence ==

== ENCOUNTER → 2023-12-26 | Day surgery (SDC) | payer MEDICARE ==
[~2023-12-26] VITALS: Ht 149.8 cm; Wt 70.8 kg
[~2023-12-26] MED LIST changes: +Balanced Salt Solution 500 ML OPH SCH; +Cefuroxime Sodium 5 MG in BALANCED SALT IRRIG SOLN NO.2 0.5 ML,SYRINGE, DISPOSABLE, 10 ... IO SCH; +Midazolam Hydrochloride 5 MG/5 ML VIAL IV ONE; +OFLOXACIN 0.3% 5 ML BOTTLE ONE; +OFLOXACIN 0.3% 5 ML BOTTLE OPH SCH; +PHENYLEPHRINE/KETOROLAC 4 ML in Balanced Salt Solution 500 ML OPH SCH; +POVIDONE IODINE 5% OPHTHALMIC 30 ML BOTTLE OPH ONE; +POVIDONE IODINE 5% OPHTHALMIC 30 ML BOTTLE OPH SCH; +Phenylephrine Hydrochloride 2 ML BOT OPH ONE; +Phenylephrine Hydrochloride 2 ML BOT OPH SCH; +Proparacaine Hydrochloride 15 ML BOT OPH ONE; +Proparacaine Hydrochloride 15 ML BOT OPH SCH; +SODIUM CHLORIDE 0.9% 1,000 ML IV SCH; +TETRACAINE HCL 10 DROP BOT OPH SCH; +TROPICAMIDE 3 ML BOT OPH ONE; +TROPICAMIDE 3 ML BOT OPH SCH; +Tetracaine Hydrochloride 0.5% 4 ML BOT OPH ONE; +Tetracaine Hydrochloride 0.5% 4 ML BOT OPH SCH; +prednisoLONE acetate 1% OPHTHALMIC 5 ML BOT OPH ONE; +prednisoLONE acetate 1% OPHTHALMIC 5 ML BOT OPH SCH
[2023-12-26 10:06] VITALS: BP 146/60
[2023-12-26 10:33] VITALS: BP 138/47
[2023-12-26 10:48] VITALS: BP 129/49
[2023-12-26 11:01] VITALS: BP 132/56
== END | disposition home or self-care (01) ==
LOC: SDC 12-21 12:30
PROVIDERS: ATTEND Ophthalmology
DX: H25.11 Age-related nuclear cataract, right eye (principal); I10 Essential (primary) hypertension; E03.9 Hypothyroidism, unspecified; J44.9 Chronic obstructive pulmonary disease, unspecified; E78.00 Pure hypercholesterolemia, unspecified; F41.9 Anxiety disorder, unspecified; E66.9 Obesity, unspecified; Z68.35 Body mass index [BMI] 35.0-35.9, adult; Z90.89 Acquired absence of other organs; Z98.891 History of uterine scar from previous surgery; Z90.710 Acquired absence of both cervix and uterus; Z87.891 Personal history of nicotine dependence; Z98.890 Other specified postprocedural states; Z79.890 Hormone replacement therapy; Z79.82 Long term (current) use of aspirin; Z79.899 Other long term (current) drug therapy; Z82.49 Family history of ischemic heart disease and other diseases of the circulatory system

== ENCOUNTER → 2024-02-20 | Day surgery (SDC) | payer MEDICARE ==
[~2024-02-20] VITALS: Ht 149.8 cm; Wt 70.8 kg
[~2024-02-20] MED LIST changes: +Midazolam Hydrochloride 2 MG/2 ML VIAL IV ONE; -Midazolam Hydrochloride 5 MG/5 ML VIAL IV ONE
[2024-02-20 09:48] VITALS: BP 143/60
[2024-02-20 10:46] VITALS: BP 145/56
[2024-02-20 11:01] VITALS: BP 124/48
[2024-02-20 11:15] VITALS: BP 131/55
== END | disposition home or self-care (01) ==
LOC: SDC 02-15 11:00
PROVIDERS: ATTEND Ophthalmology
DX: H25.12 Age-related nuclear cataract, left eye (principal); I10 Essential (primary) hypertension; J44.9 Chronic obstructive pulmonary disease, unspecified; E78.00 Pure hypercholesterolemia, unspecified; E03.9 Hypothyroidism, unspecified; E66.9 Obesity, unspecified; Z68.35 Body mass index [BMI] 35.0-35.9, adult; Z90.89 Acquired absence of other organs; Z90.710 Acquired absence of both cervix and uterus; Z87.891 Personal history of nicotine dependence; Z98.891 History of uterine scar from previous surgery; Z98.890 Other specified postprocedural states; Z79.890 Hormone replacement therapy; Z79.82 Long term (current) use of aspirin; Z79.899 Other long term (current) drug therapy; Z88.8 Allergy status to other drugs, medicaments and biological substances; Z82.49 Family history of ischemic heart disease and other diseases of the circulatory system

== ENCOUNTER → 2024-02-28 | Outpatient (CLI) | payer MEDICARE ==
[~2024-02-28] MED LIST changes: -Balanced Salt Solution 500 ML OPH SCH; -Cefuroxime Sodium 5 MG in BALANCED SALT IRRIG SOLN NO.2 0.5 ML,SYRINGE, DISPOSABLE, 10 ... IO SCH; -Midazolam Hydrochloride 2 MG/2 ML VIAL IV ONE; -OFLOXACIN 0.3% 5 ML BOTTLE ONE; -OFLOXACIN 0.3% 5 ML BOTTLE OPH SCH; -PHENYLEPHRINE/KETOROLAC 4 ML in Balanced Salt Solution 500 ML OPH SCH; -POVIDONE IODINE 5% OPHTHALMIC 30 ML BOTTLE OPH ONE; -POVIDONE IODINE 5% OPHTHALMIC 30 ML BOTTLE OPH SCH; -Phenylephrine Hydrochloride 2 ML BOT OPH ONE; -Phenylephrine Hydrochloride 2 ML BOT OPH SCH; -Proparacaine Hydrochloride 15 ML BOT OPH ONE; -Proparacaine Hydrochloride 15 ML BOT OPH SCH; -SODIUM CHLORIDE 0.9% 1,000 ML IV SCH; -TETRACAINE HCL 10 DROP BOT OPH SCH; -TROPICAMIDE 3 ML BOT OPH ONE; -TROPICAMIDE 3 ML BOT OPH SCH; -Tetracaine Hydrochloride 0.5% 4 ML BOT OPH ONE; -Tetracaine Hydrochloride 0.5% 4 ML BOT OPH SCH; -prednisoLONE acetate 1% OPHTHALMIC 5 ML BOT OPH ONE; -prednisoLONE acetate 1% OPHTHALMIC 5 ML BOT OPH SCH
== END | disposition home or self-care (01) ==
LOC: RAD 10:30
PROVIDERS: ATTEND Nurse Practitioner Family
DX: M79.672 Pain in left foot (principal)

== ENCOUNTER 2024-03-15 10:03 | Emergency (ER) | payer MEDICARE ==
[~2024-03-15] VITALS: Ht 149.8 cm; Wt 68.0 kg
[2024-03-15 10:21] VITALS: BP 113/92
[2024-03-15] MEDS ORDERED: predniSONE 20 MG TAB PO ONE (10:35)
[2024-03-15] MEDS ORDERED: Acetaminophen/Oxycodone 5 MG/325 MG TABLET PO ONE (10:35)
[2024-03-15] MEDS ORDERED: PREDNISONE20 M1 PO (10:50)
[2024-03-15] MEDS ORDERED: PERCOCET 5-3251 EACH PO (10:50)
== END 2024-03-15 11:03 | disposition home or self-care (01) ==
LOC: ED 10:03
DX: M10.9 Gout, unspecified (principal); M79.672 Pain in left foot; J44.9 Chronic obstructive pulmonary disease, unspecified; I10 Essential (primary) hypertension; E03.9 Hypothyroidism, unspecified; Z88.8 Allergy status to other drugs, medicaments and biological substances; Z90.89 Acquired absence of other organs; Z90.710 Acquired absence of both cervix and uterus; Z98.890 Other specified postprocedural states; Z87.891 Personal history of nicotine dependence; E78.00 Pure hypercholesterolemia, unspecified

== ENCOUNTER → 2024-10-07 | Outpatient (CLI) | payer MEDICARE ==
[~2024-10-07] MED LIST changes: +PERCOCET 5-3251 EACH PO; +PREDNISONE20 M1 PO
== END | disposition home or self-care (01) ==
LOC: RAD 10:27
PROVIDERS: ATTEND Nurse Practitioner Family
DX: R05.3 Chronic cough (principal); R06.02 Shortness of breath; R09.81 Nasal congestion